=== PATIENT | female | born 1995 | race Caucasian/White ===

== ENCOUNTER 2018-04-24 21:31 | Emergency (ER) | payer OTHER ==
[2018-04-24] MEDS ORDERED: NORMAL SALINE 1000 ML 1,000 ML IV ONE (22:05)
[2018-04-24] MEDS ORDERED: LORAZEPAM INJ 2 MG/1 ML VIAL IV ONE (22:05)
--- NOTE | 2018-04-24 22:05 | ER Document Report ---
ED General - General Chief Complaint: Anxiety Stated Complaint: FAST HEART RATE Time Seen by Provider: 04/24/18 21:39 Mode of Arrival: Medic Information source: Patient, [facility] Records Notes: 22-year-old female presents with complaint of anxiety, palpitations, chest pain and shortness of breath that occurred shortly after eating edible marijuana. Patient states that she ingested marijuana approximately 3 hours prior to arrival. Shortly afterwards she became tremulous and was concerned that she would become "more suicidal". Patient also stated "I want to ". Patient states that she has always had suicidal ideation and then when she began feeling anxious she was concerned that she may actually do something harmful to herself. When asked what her plan would be if she were to kill herself she stated that she would use her shotgun and shoot herself. Patient admits to a history of depression, anxiety but states that she has never been on any antidepressant. Her is currently in [place] and she is here alone without family. She denies any specific stressor. She denies homicidal ideation, visual and auditory hallucinations. She denies previous attempt at suicide but states that she has always thought about it. Patient states that she ate the edibles due to tooth pain. TRAVEL OUTSIDE OF THE [place] IN LAST 30 DAYS: No - HPI Onset: Just prior to arrival Onset/Duration: Sudden Quality of pain: Pressure Associated symptoms: Chest pain, Shortness of breath, Other - Anxious, tremulous. denies: Nausea, Vomiting Exacerbated by: Denies Relieved by: Denies Similar symptoms previously: Yes Recently seen / treated by doctor: No - Related Data Allergies/Adverse Reactions: No Known Allergies Allergy (Unverified 04/24/18 22:00) Past Medical History - General Information source: Patient, [facility] Records - Social History Smoking Status: Current Every Day Smoker Cigarette use (# per day): Yes - 10 Smoking Education Provided: Yes - Smoking cessation counseling was provided for 4 minutes at the bedside Frequency of alcohol use: Occasional Drug Abuse: Marijuana Lives with: Alone Family History: Reviewed & Not Pertinent Patient has suicidal ideation: Yes Patient has homicidal ideation: No Psychiatric Medical History: Reports: Hx Anxiety, Hx Depression Review of Systems - Review of Systems Notes: REVIEW OF SYSTEMS: CONSTITUTIONAL : Denies fever, chills, or sweats. Denies recent illness. Denies weight loss, recent hospitalizations. EENT: Denies visual changes, eye pain. Denies sore throat, oral lesions, difficulty swallowing. CARDIOVASCULAR: Denies lower extremity edema. RESPIRATORY: Denies cough. Denies shortness of breath, wheezing. GASTROINTESTINAL: Denies abdominal pain or distention. Denies nausea, vomiting , or diarrhea. Denies blood in vomitus, stools, or per rectum. Denies black, tarry stools. Denies constipation. GENITOURINARY: Denies difficulty urinating, painful urination, frequency, blood in urine, or vaginal discharge. MUSCULOSKELETAL: Denies back or neck pain or stiffness. Denies joint pain or swelling. SKIN: Denies rash, lesions or sores. HEMATOLOGIC : Denies easy bruising or bleeding. LYMPHATIC: Denies swollen glands. NEUROLOGICAL: Denies confusion or altered mental status. Denies loss of consciousness. Denies dizziness Denies headache. Denies weakness or paralysis. Denies problems difficulty with ambulation, slurred speech. Denies sensory loss, numbness, or tingling. Denies seizures. PSYCHIATRIC: Denies homicidal ideation. Denies visual or auditory hallucinations. Physical Exam - Vital signs Vitals: Temp Pulse Resp BP Pulse Ox 98.2 F 122 H 16 131/78 H 100 04/24/18 21:41 04/24/18 21:41 04/24/18 21:41 04/24/18 21:41 04/24/18 21:41 - Notes Notes: PHYSICAL EXAMINATION: GENERAL: Well-appearing, well-nourished and in no acute distress. HEAD: Atraumatic, normocephalic. EYES: Pupils equal round and reactive to light, extraocular movements intact, conjunctiva are normal. ENT: Nares patent, oropharynx clear without exudates. Moist mucous membranes. NECK: Normal range of motion, supple without lymphadenopathy LUNGS: Breath sounds clear to auscultation bilaterally and equal. No wheezes rales or rhonchi. HEART: Tachycardic, regular rhythm. Pulses equal throughout ABDOMEN: Soft, nontender, nondistended abdomen. No guarding, no rebound. No masses appreciated. Female : deferred Musculoskeletal: Normal range of motion, no pitting or edema. No cyanosis. NEUROLOGICAL: Cranial nerves grossly intact. Normal speech, normal gait. Normal sensory, motor exams. Tremulous PSYCH: Anxious, tearful, admits to suicidal ideation. SKIN: Warm, Dry, normal turgor, no rashes or lesions noted. Course - Re-evaluation Re-evalutation: Laboratory 04/24/18 04/24/18 04/24/18 22:24 22:24 23:42 WBC 16.6 H RBC 5.27 Hgb 15.1 Hct 44.6 MCV 85 MCH 28.6 MCHC 33.8 RDW 14.4 H Plt Count 439 Seg Neutrophils % 87.3 H Lymphocytes % 7.4 L Monocytes % 4.9 Eosinophils % 0.1 Basophils % 0.3 Absolute Neutrophils 14.5 H Absolute Lymphocytes 1.2 Absolute Monocytes 0.8 Absolute Eosinophils 0.0 Absolute Basophils 0.1 Sodium 141.1 Potassium 4.0 Chloride 101 Carbon Dioxide 23 Anion Gap 17 BUN 9 Creatinine 0.58 Est GFR ( Amer) > 60 Est GFR (Non-Af Amer) > 60 Glucose 103 Calcium 10.5 H Total Bilirubin 1.0 Direct Bilirubin 0.2 Neonat Total Bilirubin Not Reportable Neonat Direct Bilirubin Not Reportable Neonat Indirect Bili Not Reportable AST 34 ALT 21 Alkaline Phosphatase 98 Total Protein 8.5 H Albumin 5.1 H Urine Color YELLOW Urine Appearance SLIGHTLY-CLOUDY Urine pH 6.0 Ur Specific [place] 1.010 Urine Protein NEGATIVE Urine Glucose (UA) NEGATIVE Urine Ketones 20 H Urine Blood NEGATIVE Urine Nitrite NEGATIVE Urine Bilirubin NEGATIVE Urine Urobilinogen NEGATIVE Ur Leukocyte Esterase NEGATIVE Urine WBC (Auto) 1 Urine RBC (Auto) 0 Squamous Epi Cells Auto 1 Urine Mucus (Auto) MOD Urine Ascorbic Acid 40 H Urine HCG, Qual NEGATIVE Salicylates < 1.0 L Urine Opiates Screen Urine Methadone Screen Acetaminophen < 10 L Ur Barbiturates Screen Ur Phencyclidine Scrn Ur Amphetamines Screen U Benzodiazepines Scrn Urine Cocaine Screen U Marijuana (THC) Screen Serum Alcohol < 10 04/24/18 23:42 WBC RBC Hgb Hct MCV MCH MCHC RDW Plt Count Seg Neutrophils % Lymphocytes % Monocytes % Eosinophils % Basophils % Absolute Neutrophils Absolute Lymphocytes Absolute Monocytes Absolute Eosinophils Absolute Basophils Sodium Potassium Chloride Carbon Dioxide Anion Gap BUN Creatinine Est GFR ( Amer) Est GFR (Non-Af Amer) Glucose Calcium Total Bilirubin Direct Bilirubin Neonat Total Bilirubin Neonat Direct Bilirubin Neonat Indirect Bili AST ALT Alkaline Phosphatase Total Protein Albumin Urine Color Urine Appearance Urine pH Ur Specific Stafford Urine Protein Urine Glucose (UA) Urine Ketones Urine Blood Urine Nitrite Urine Bilirubin Urine Urobilinogen Ur Leukocyte Esterase Urine WBC (Auto) Urine RBC (Auto) Squamous Epi Cells Auto Urine Mucus (Auto) Urine Ascorbic Acid Urine HCG, Qual Salicylates Urine Opiates Screen NEGATIVE Urine Methadone Screen NEGATIVE Acetaminophen Ur Barbiturates Screen NEGATIVE Ur Phencyclidine Scrn NEGATIVE Ur Amphetamines Screen NEGATIVE U Benzodiazepines Scrn NEGATIVE Urine Cocaine Screen NEGATIVE U Marijuana (THC) Screen UNCONFIRMED POSITIVE Serum Alcohol 04/24/18 23:21 22-year-old female presents after eating marijuana edible's with complaint of anxiety. During her history patient states "I want to ". She also states that "I am already very suicidal". She states that after taking the marijuana she began experiencing palpitations, chest pain and tremors. She became concerned that she would become "more suicidal". She does not admit to any specific stressors. She states that she has always suffered from depression and anxiety and has always thought about killing herself although she has not attempted to. When asked what her plan would be she states that she would shoot herself with her shotgun. Her is currently in [place] and she is here alone without family. Upon arrival vitals were reviewed. Patient is tachycardic, hypertensive. She does not appear toxic, dehydrated. She is alert and oriented x3. IV fluids and Ativan initiated. Psych labs and consult initiated. 04/24/18 23:23 I was called back into the room by the patient and nursing staff. Patient now states that she did not mean what she said about killing herself. She states "high and I did not mean it". I explained to the patient that she will be observed overnight and in our psychology team will reevaluate her in the morning. 04/25/18 01:33 Patient remains tachycardic. Additional IV fluids and Ativan were given. She is resting comfortably and has been cooperative. CBC does show a leukocytosis of 16 without a clear source. This could be secondary to stress. CMP is without significant electrolyte abnormality urinalysis shows no evidence of infection and the patient is not . Urine drug screen was obtained and positive for marijuana for which the patient already admitted taking. Tylenol, salicylate and alcohol level are negative. 04/25/18 03:13 Patient reevaluated. She is sleeping peacefully. Heart rate now 105 after receiving 2 L of IV fluids and 1 mg of Ativan. Patient cleared for psychiatric evaluation in the morning. - Vital Signs Vital signs: Temp Pulse Resp BP Pulse Ox 98.2 F 122 H 16 131/78 H 97 04/24/18 21:41 04/24/18 21:41 04/24/18 21:41 04/24/18 21:41 04/25/18 02:00 - Laboratory Result Diagrams: 04/24/18 22:24 04/24/18 22:24 Laboratory results interpreted by me: 04/24/18 04/24/18 04/24/18 22:24 22:24 23:42 WBC 16.6 H RDW 14.4 H Seg Neutrophils % 87.3 H Lymphocytes % 7.4 L Absolute Neutrophils 14.5 H Calcium 10.5 H Total Protein 8.5 H Albumin 5.1 H Urine Ketones 20 H Urine Ascorbic Acid 40 H Salicylates < 1.0 L Acetaminophen < 10 L - EKG Interpretation by Me EKG shows normal: Sinus rhythm Rate: Tachycardia Rhythm: NSR When compared to previous EKG there are: Previous EKG unavailable Discharge - Discharge Clinical Impression: Suicidal ideation, Marijuana use, Anxiety reaction, Tachycardia Condition: Good Instructions: Anxiety ([facility]), Sinus Tachycardia ([facility]), Suicidal Ideation ([facility]) Forms: Smoking Cessation Education, Elevated Blood Pressure
[2018-04-24 22:32] LABS: ABSOLUTE BASOPHILS # (AUTO) 0.1 10^3/uL (0.0-0.2); ABSOLUTE LYMPHOCYTES (AUTO) 1.2 10^3/uL (0.5-4.7); ABSOLUTE MONOCYTES (AUTO) 0.8 10^3/uL (0.1-1.4); ABSOLUTE NEUT (AUTO) 14.5 10^3/uL (1.7-8.2); BASOPHILS % (AUTO) 0.3 % (0-2); EOSINOPHILS % (AUTO) 0.1 % (0-6); HEMATOCRIT 44.6 % (36.0-47.0); HEMOGLOBIN 15.1 g/dL (12.0-15.5); LYMPHOCYTES % (AUTO) 7.4 % (13-45); MEAN CORPUSCULAR HEMOGLOBIN 28.6 pg (27.0-33.4); MEAN CORPUSCULAR HGB CONC 33.8 g/dL (32.0-36.0); MEAN CORPUSCULAR VOLUME 85 fl (80-97); MONOCYTES % (AUTO) 4.9 % (3-13); PLATELET COUNT 439 10^3/uL (150-450); RED BLOOD COUNT 5.27 10^6/uL (3.72-5.28); RED CELL DISTRIBUTION WIDTH 14.4 % (11.5-14.0); SEGMENTED NEUTROPHILS % (AUTO) 87.3 % (42-78); TOTAL CELLS COUNTED % (AUTO) 100 %; WHITE BLOOD COUNT 16.6 10^3/uL (4.0-10.5)
[2018-04-24 22:50] LABS: ACETAMINOPHEN < 10 ug/mL (10-30); ALANINE AMINOTRANSFERASE 21 U/L (9-52); ALBUMIN 5.1 g/dL (3.5-5.0); ALCOHOL < 10 mg/dL (NONE DETECTED); ALKALINE PHOSPHATASE 98 U/L (38-126); ANION GAP 17 (5-19); ASPARTATE AMINO TRANSFERASE 34 U/L (14-36); BILIRUBIN,DIRECT 0.2 mg/dL (0.0-0.4); BLOOD UREA NITROGEN 9 mg/dL (7-20); CALCIUM 10.5 mg/dL (8.4-10.2); CARBON DIOXIDE 23 mmol/L (22-30); CHLORIDE 101 mmol/L (98-107); GLUCOSE 103 mg/dL (75-110); SALICYLATE < 1.0 mg/dL (2.0-20.0); SODIUM 141.1 mmol/L (137-145); TOTAL PROTEIN 8.5 g/dL (6.3-8.2)
[2018-04-24 23:55] LABS: APPEARANCE,URINE SLIGHTLY-CLOUDY; BILIRUBIN,URINE NEGATIVE (NEGATIVE); COLOR,URINE YELLOW; GLUCOSE, URINE NEGATIVE (NEGATIVE); KETONES,URINE 20 mg/dL (NEGATIVE); LEUKOCYTE ESTERASE,URINE NEGATIVE (NEGATIVE); NITRITE,URINE NEGATIVE (NEGATIVE); PROTEIN,URINE NEGATIVE (NEGATIVE); UROBILINOGEN,URINE NEGATIVE mg/dL (<2.0)
[2018-04-25] MEDS ORDERED: LORAZEPAM INJ 2 MG/1 ML VIAL IV ONE (01:05)
[2018-04-25 01:06] LABS: URINE AMPHETAMINES SCREEN NEGATIVE; URINE BARBITURATES SCREEN NEGATIVE; URINE BENZODIAZEPINES SCREEN NEGATIVE; URINE COCAINE SCREEN NEGATIVE; URINE MARIJUANA (THC) SCREEN UNCONFIRMED POSITIVE; URINE METHADONE SCREEN NEGATIVE; URINE PHENCYCLIDINE SCREEN NEGATIVE
[2018-04-25] MEDS: NORMAL SALINE 1000 ML 1,000 ML IV PRN ×2 (01:20→01:21)
--- NOTE | 2018-04-25 07:27 | EKG REPORT ---
SEVERITY:- BORDERLINE ECG - SINUS TACHYCARDIA PROBABLE LEFT ATRIAL ABNORMALITY : Confirmed by: Jam Mosquera 25-Apr-2018 07:26:13
[2018-04-25 08:58] VITALS: BP 121/73
--- NOTE | 2018-04-25 09:30 | PSYCHOLOGICAL NOTE ---
Psych Note - Psych Note Date seen by psych provider: 04/25/18 Time seen by psych provider: 07:25 Psych Note: Reason for Consult: suicidal ideation Consent permissions:Timoteo, friend and neighbor 22-year-old female presents with complaint of anxiety, palpitations, chest pain and shortness of breath that occurred shortly after eating edible marijuana. Clinician was consulted because of concerns from a discussion with the patient: Shortly afterwards she became tremulous and was concerned that she would become "more suicidal". Patient also stated "I want to ". Patient states that she has always had suicidal ideation and then when she began feeling anxious she was concerned that she may actually do something harmful to herself. When asked what her plan would be if she were to kill herself she stated that she would use her shotgun and shoot herself. Approximately 2 minutes later the doctor was called back into the room where the patient stated she was "high and I did not mean it". Evaluation Patient disclosed that she called her to report she was having increased anxiety and feeling like her heart was going to beat out of her chest. She reports that he called 911. She disclosed that she attempted to text her neighbors in addition to calling her however her was the only when she can get hold of. She reports that she took some edible marijuana which seemed to increase her anxiety. She discloses that when the doctor came in to talk to her she was "super high" and became confused. She states they were talking about previous mental health and if she never been on an any antidepressants in the past. She reports "I told her I used to be suicidal... But I never had a plan." She denies current suicidal ideation. She states that when the doctor asked her if she had a plan she was " confused... I thought she was asking me to come up with a plan right there so I said I guess I use my 's shotgun." She discloses that her is currently in [place] doing workups for deployment in September. She reports that she has neighbors that live upstairs from her that she considers is close his family named Micky. She confirms that she would like them to be part of her discharge plan. Patient is alert and orientated to person, place, time and circumstance. Mood is euthymic with congruent affect as evidenced by smiling and openly engaging with clinician. Patient denies current suicidal ideation admits to past events of suicidal ideation with no plans means or intent. Patient discloses she thought she had to come up with a plan when the attending physician asked her. Patient denies homicidal ideation. Delusions are absent behaviors congruent with an intact reality based presentation i.e. organized and linear thought process. Eye contact was well-maintained. Conversational speech is within normal rate, tone and prosody. Intellectual abilities appear to be average to low average range. Attention and concentration are good. Insight, judgment, impulse control are fair. Clinician spoke with Timoteo patient's neighbor at bedside per patient's request. He discloses he will be part of patient's discharge plan to ensure she does not have access to medications weapons. He reports that he will secure patient's 's weapon at his brother's home in a safe so the patient does not have access. He reports he is employed as EMS and understands the importance of what is being requested. He agrees to ensure the patient follows up with outpatient mental health services. He discloses he has no other concerns for the patient. No medication recommendations at this time Diagnosis 311 (F32.9) unspecified depressive disorder Impression\\plan: Patient is recommended for rescind of IVC and is cleared from acute psychiatric services. Patient no longer meets IVC criteria per [place] GS 122C. Patient is no longer under the influence and denies suicidal ideation. She reports that while under the influence she became confused and thought she had to provide a plan to the attending physician. She reports she is never had a plan previous. Patient's neighbor, Timoteo, agrees to be part of patient's discharge plan to ensure she does not have access to medications or weapons and to follow through with mental health services. He confirms he will secure the patient's 's weapon in a safe at his brother's home so the patient does not have access. Patient is encouraged not to use any illicit drugs to self medicate i.e. marijuana edible's. Patient is recommended to follow-up with outpatient mental health services; she has been provided a resource list for local area in addition to mobile crisis contact information. Dr. Mauricio was consulted and the care management of this patient; attending physician is agreement with recommendations and disposition.
--- NOTE | 2018-04-25 09:30 | ER Document Report ---
Doctor's Note Notes: 04/25/18 09:27 Rounds: Chart reviewed and patient interviewed. Patient is sitting up on her stretcher, smiling and happy, says she feels much better and does not feel suicidal. Lab studies showed a white count of 16,600 but no source of fever noted. Patient has no symptoms of any infectious process. No fever, etc. Urinalysis does not show any evidence of infection. Vital signs were all normal this morning except for heart rate of 105. Has never been told that her heart rate was high in the past. I have added on a thyroid study to the patient 's lab studies. Current heart rate at the bedside by me is 96. Patient appears to be medically stable for transfer or discharge. Victorino Biswas MD
[2018-04-25 09:54] LABS: FREE T4 (FREE THYROXINE) 1.2 ng/dL (0.78-2.19)
[2018-04-25 10:08] LABS: THYROID STIMULATING HORMONE 0.39 uIU/mL (0.47-4.68)
== END 2018-04-25 09:37 | disposition home or self-care (01) ==
LOC: ER 21:31
DX: F12.10 Cannabis abuse, uncomplicated (principal); F41.1 Generalized anxiety disorder; R45.851 Suicidal ideations; R00.0 Tachycardia, unspecified; R06.02 Shortness of breath; R00.2 Palpitations; R07.89 Other chest pain; R25.1 Tremor, unspecified; D72.829 Elevated white blood cell count, unspecified; F17.210 Nicotine dependence, cigarettes, uncomplicated; Z71.6 Tobacco abuse counseling
CPT/HCPCS: 93005; 96376; 99285; 96361; 96374; 36415; 84439; 80307 ×4; 84443; 85025; 81025; 80053; 81001; 93010; J2060 ×2; J7030 ×2